=== PATIENT | male | born 1985 | race African-American/Black ===

== ENCOUNTER 2016-05-30 19:36 | Emergency (ER) | payer OTHER ==
[~2016-05-30] VITALS: Ht 177.8 cm; Wt 77.1 kg
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
[2016-05-30 22:08] VITALS: BP 117/73
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
--- NOTE | 2016-05-30 23:09 | RADIOLOGY REPORT ---
EXAMINATION: XR ANKLE, LEFT CLINICAL INFORMATION: Left ankle pain. COMPARISON: None. TECHNIQUE: AP, lateral, and mortise views of the left ankle. FINDINGS: The bones and soft tissues are normal. No fracture. Alignment is anatomic. Joint spaces are maintained. No joint effusion. IMPRESSION: No acute fracture or dislocation of the left ankle.
[2016-05-30] MEDS ORDERED: IBUPROFEN800 M1 PO (23:21)
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
== END 2016-05-30 23:26 ==
LOC: ERH 19:36
DX: S93.402A Sprain of unspecified ligament of left ankle, initial encounter (principal); S60.222A Contusion of left hand, initial encounter; T14.8 Other injury of unspecified body region; V28.4XXA Motorcycle driver injured in noncollision transport accident in traffic accident, initial encounter; Y92.410 Unspecified street and highway as the place of occurrence of the external cause; Y93.9 Activity, unspecified
CPT/HCPCS: 71100-RT; 72050; 73120-LT; 73560-RT; 73610-LT; 96374; J1885